=== PATIENT | female | born 1985 | race Caucasian/White ===

== ENCOUNTER 2023-06-24 16:21 | Emergency (ER) | payer SELFPAY ==
[~2023-06-24] VITALS: Ht 147.3 cm; Wt 59.4 kg
[2023-06-24 16:22] VITALS: O2SAT 99
[2023-06-24] MEDS ORDERED: CLONIDINE HCL 0.1 MG TABLET ONE (16:29)
[2023-06-24 16:36] VITALS: BP 169/96
[2023-06-24] MEDS: CLONIDINE HCL 0.1 MG TABLET PO ONE ×2 (16:36→16:45)
[2023-06-24] MEDS: IV NORMAL SALINE 1000 ML BAG IV ONE (16:45)
[2023-06-24] MEDS ORDERED: diphenhydrAMINE 50 MG/1 ML VIAL ONE (16:46)
[2023-06-24] MEDS ORDERED: LORAZEPAM 2 MG/1 ML VIAL ONE (16:47)
[2023-06-24] MEDS: diphenhydrAMINE 50 MG/1 ML VIAL IM ONE (16:53)
[2023-06-24] MEDS: LORAZEPAM 2 MG/1 ML VIAL IM ONE (16:53)
== END 2023-06-24 17:09 | disposition left against medical advice (07) ==
LOC: ER 16:22
DX: F11.23 Opioid dependence with withdrawal (principal); I10 Essential (primary) hypertension; R00.0 Tachycardia, unspecified
CPT/HCPCS: 99284; 93005; 96372 ×2; J1200; J2060; A4606; A4663